=== PATIENT | female | born 1995 | race African-American/Black ===

== ENCOUNTER 2017-05-12 08:47 | Emergency (ER) | payer MEDICAID ==
[~2017-05-12] VITALS: Ht 160 cm; Wt 59.0 kg
[2017-05-12 09:29] VITALS: BP 120/64
[2017-05-12] MEDS ORDERED: IBUPROFEN 600MG TABLET PO ONE (09:30)
== END 2017-05-12 09:48 | disposition home or self-care (01) ==
LOC: ER 09:41
DX: H92.09 Otalgia, unspecified ear (principal); F12.10 Cannabis abuse, uncomplicated
CPT/HCPCS: 99282

== ENCOUNTER 2017-05-16 20:31 | Emergency (ER) | payer MEDICAID ==
[~2017-05-16] VITALS: Ht 160 cm; Wt 57.0 kg
[2017-05-16] MEDS ORDERED: KETOROLAC 60MG/2ML VIAL IM ONE (22:30)
[2017-05-16 22:52] VITALS: BP 129/71
== END 2017-05-16 23:05 | disposition home or self-care (01) ==
LOC: ER 21:12
DX: H66.92 Otitis media, unspecified, left ear (principal); H60.8X2 Other otitis externa, left ear; F17.200 Nicotine dependence, unspecified, uncomplicated; F12.10 Cannabis abuse, uncomplicated
CPT/HCPCS: 96372; 99283; J1885; Z7610

== ENCOUNTER 2017-09-20 11:19 | Emergency (ER) | payer MEDICAID ==
[~2017-09-20] VITALS: Ht 160 cm; Wt 57.0 kg
[2017-09-20 11:38] VITALS: BP 97/55
[2017-09-20] MEDS ORDERED: IBUPROFEN 600MG TABLET PO ONE (11:45)
== END 2017-09-20 11:57 | disposition home or self-care (01) ==
LOC: ER 11:43
DX: L91.0 Hypertrophic scar (principal); F12.10 Cannabis abuse, uncomplicated
CPT/HCPCS: 99282

== ENCOUNTER 2017-09-24 11:58 | Emergency (ER) | payer MEDICAID ==
[~2017-09-24] VITALS: Ht 160 cm; Wt 57.0 kg
[2017-09-24] MEDS ORDERED: SODIUM CHLORIDE 0.9% 1,000 ML IV ONE (13:07)
[2017-09-24 13:25] LABS: BASOPHILS % 0.5 % (0.0-2.0); EOSINOPHILS % 1.6 % (0.0-5.0); HEMATOCRIT. 36.5 % (36.0-48.0); HEMOGLOBIN. 12.2 g/dL (12.0-16.0); LYMPHOCYTES % 15.7 % (20.0-50.0); MEAN CORPUSCULAR HEMOGLOBIN 30.4 pg (28.0-32.0); MEAN CORPUSCULAR VOLUME 91.4 fL (81.0-99.0); MEAN PLATELET VOLUME 10.5 fl (7.4-10.4); MONOCYTES % 6.9 % (2.0-8.0); NEUTROPHILS % 75.3 % (40.0-76.0); PLATELET 198 x1000/uL (130-400); RED CELL DISTRIBUTION WIDTH 14.1 % (11.6-14.6)
[2017-09-24 13:32] LABS: CHLORIDE 105 mEq/L (98-107)
[2017-09-24 13:36] LABS: HCG SCREEN NEGATIVE
[2017-09-24 13:38] LABS: CARBON DIOXIDE 28 mEq/L (21-32)
[2017-09-24 14:09] LABS: CLARITY URINE CLEAR (CLEAR); COLOR URINE YELLOW (YELLOW); GLUCOSE URINE NEGATIVE (NEGATIVE); KETONES URINE TRACE (NEGATIVE); LEUKOCYTE ESTERASE URINE NEGATIVE (NEGATIVE); NITRITE URINE NEGATIVE (NEGATIVE); OCCULT BLOOD URINE NEGATIVE (NEGATIVE); PH URINE 5.5 (4.5-8.0); PROTEIN URINE NEGATIVE (NEGATIVE); SPECIFIC GRAVITY URINE 1.032 (1.005-1.030)
[2017-09-24 15:08] VITALS: BP 108/62
== END 2017-09-24 15:23 | disposition home or self-care (01) ==
LOC: ER 12:25
DX: L04.8 Acute lymphadenitis of other sites (principal); F12.10 Cannabis abuse, uncomplicated
CPT/HCPCS: 36415; 71010; 80048; 81003; 84703; 85025; 96360; 99285; J7030; Z7610

== ENCOUNTER 2017-12-26 17:44 | Emergency (ER) | payer MEDICAID ==
[~2017-12-26] VITALS: Ht 154.9 cm; Wt 57.0 kg
[2017-12-26 17:55] VITALS: BP 100/58
== END 2017-12-26 21:42 | disposition left against medical advice (07) ==
LOC: ER 21:20
DX: J02.9 Acute pharyngitis, unspecified (principal); Z53.21 Procedure and treatment not carried out due to patient leaving prior to being seen by health care provider

== ENCOUNTER 2018-03-04 08:06 | Emergency (ER) | payer MEDICAID ==
[~2018-03-04] VITALS: Ht 162.6 cm; Wt 58.0 kg
[2018-03-04 08:12] VITALS: BP 93/63
== END 2018-03-04 09:37 | disposition home or self-care (01) ==
LOC: ER 08:06
DX: J30.9 Allergic rhinitis, unspecified (principal); B34.9 Viral infection, unspecified; H92.02 Otalgia, left ear; F12.10 Cannabis abuse, uncomplicated
CPT/HCPCS: 99282

== ENCOUNTER 2018-07-14 12:53 | Emergency (ER) | payer MEDICAID, OTHER ==
[~2018-07-14] VITALS: Ht 167.6 cm; Wt 64.0 kg
[2018-07-14 13:51] VITALS: BP 96/53
== END 2018-07-14 16:25 | disposition home or self-care (01) ==
LOC: ER 12:53
DX: H57.13 Ocular pain, bilateral (principal); F12.10 Cannabis abuse, uncomplicated; Z77.098 Contact with and (suspected) exposure to other hazardous, chiefly nonmedicinal, chemicals
CPT/HCPCS: 99283

== ENCOUNTER 2019-04-05 11:02 | Emergency (ER) | payer OTHER ==
[~2019-04-05] VITALS: Ht 160 cm; Wt 50.0 kg
[2019-04-05] MEDS ORDERED: IBUPROFEN 600MG TABLET PO ONE (14:30)
[2019-04-05 14:49] VITALS: BP 110/69
== END 2019-04-05 16:33 | disposition home or self-care (01) ==
LOC: ER 12:35
DX: S93.692A Other sprain of left foot, initial encounter (principal); S93.492A Sprain of other ligament of left ankle, initial encounter; W10.8XXA Fall (on) (from) other stairs and steps, initial encounter; Y93.01 Activity, walking, marching and hiking; Y92.89 Other specified places as the place of occurrence of the external cause; F12.90 Cannabis use, unspecified, uncomplicated
CPT/HCPCS: 73610; 73630; 81025; 99283

== ENCOUNTER 2019-07-15 10:50 | Emergency (ER) | payer OTHER ==
[~2019-07-15] VITALS: Ht 160 cm; Wt 52.2 kg
[2019-07-15] MEDS ORDERED: SODIUM CHLORIDE 0.9% 1,000 ML IV ONE ×2 (12:12→15:00)
[2019-07-15] MEDS ORDERED: ONDANSETRON HCL 4MG/2ML INJ IV ONE (12:30)
[2019-07-15] MEDS ORDERED: MORPHINE SULFATE 4 MG/ML CPJ (NOT FOR IM USE) IV ONE (12:30)
[2019-07-15 13:05] LABS: BASOPHILS % 0.4 % (0.0-2.0); EOSINOPHILS % 1.4 % (0.0-5.0); HEMATOCRIT. 37.5 % (36.0-48.0); HEMOGLOBIN. 12.6 g/dL (12.0-16.0); LYMPHOCYTES % 20.2 % (20.0-50.0); MEAN CORPUSCULAR HEMOGLOBIN 31.8 pg (28.0-32.0); MEAN CORPUSCULAR VOLUME 94.7 fL (81.0-99.0); MONOCYTES % 7.4 % (2.0-8.0); NEUTROPHILS % 70.6 % (40.0-76.0); PLATELET 180 x1000/uL (130-400); RED BLOOD CELL COUNT 3.96 mill/uL (4.2-5.4); RED CELL DISTRIBUTION WIDTH 13.2 % (11.6-14.6)
[2019-07-15 13:13] LABS: CHLORIDE 105 mEq/L (98-107); INR 1.1; PROTHROMBIN TIME 11.7 sec (9.6-11.0)
[2019-07-15 13:17] LABS: ETHANOL BLOOD < 10 mg/dL
[2019-07-15] MEDS ORDERED: KETOROLAC 15MG/ML VIAL IV ONE (15:00)
[2019-07-15] MEDS ORDERED: SODIUM CHLORIDE 0.9% 1,000 ML IV SCH (15:45)
[2019-07-15 17:10] VITALS: BP 108/62
== END 2019-07-15 17:51 | disposition home or self-care (01) ==
LOC: ER 13:26 → SUPCPDRO 15:24 → ER 17:51 → CANBEDREQ 19:59
DX: R74.0 Nonspecific elevation of levels of transaminase and lactic acid dehydrogenase [LDH] (principal); R51 Headache; R10.31 Right lower quadrant pain; F12.10 Cannabis abuse, uncomplicated
CPT/HCPCS: 36415; 70450; 80053; 80076; 80307; 80320; 80329; 82140; 83690; 85025; 85610; 93005; 96361; 96374; 96375; 99284; J1885; J2405; J7030; G0480

== ENCOUNTER 2025-10-19 08:30 | Emergency (ER) | payer OTHER ==
[~2025-10-19] VITALS: Ht 157.5 cm; Wt 50.0 kg
[2025-10-19 08:57] VITALS: TEMP 36.7; O2SAT 100
[2025-10-19] MEDS ORDERED: AMOX1TAB16 MT (10:34)
[2025-10-19] MEDS ORDERED: OFLO5DRO4 LEFT EAR (10:34)
[2025-10-19 10:58] VITALS: BP 115/73; PULSE 80; RESP 16; O2SAT 100
== END 2025-10-19 11:00 | disposition home or self-care (01) ==
LOC: ER 08:30
DX: H66.92 Otitis media, unspecified, left ear (principal); F12.90 Cannabis use, unspecified, uncomplicated; Y90.9 Presence of alcohol in blood, level not specified
CPT/HCPCS: 99283